=== PATIENT | male | born 1940 | race Caucasian/White ===

== ENCOUNTER 2016-12-05 11:36 | Emergency (ER) | payer OTHER ==
[~2016-12-05] VITALS: Ht 172.7 cm; Wt 86.2 kg
[~2016-12-05 11:36] MED LIST: ASPIRIN325 M2 PO; ASPIRIN81 M4 PO; ATORVASTATIN CA80 M1 PO; HEPARIN-1/25000 UNI1 IV; LISINOPRIL5 M1 PO; METOPROLOL TART25 M1 PO; ONE DAILY MULT1 EAC2 PO; PLAVIX75 M1 PO
[2016-12-05] MEDS ORDERED: LABETALOL HCL100 M1 PO (12:38)
[2016-12-05] MEDS ORDERED: VITAMIN D1000 UNIT PO (12:39)
--- NOTE | 2016-12-05 12:39 | ED AMS/SEIZURE/WEAK/DIZZY ---
History of Present Illness General Chief Complaint: Dizziness Stated Complaint: DIZZINESS Source: patient, family Exam Limitations: no limitations Vital Signs & Intake/Output Vital Signs & Intake/Output Vital Signs Date Time Temp Pulse Resp B/P Pulse O2 O2 Flow FiO2 Ox Delivery Rate 12/05 1404 98.5 58 20 158/80 100 Room Air 12/05 1150 67 166/85 12/05 1150 98.2 60 16 146/84 99 Room Air Room Air ED Intake and Output 12/06 0000 12/05 1200 Intake Total 1120 Output Total Balance 1120 Intake, IV 1000 Intake, Oral 120 Patient 190 lb Weight Allergies Coded Allergies: Penicillins (Severe, RASH 06/06/16) Reconcile Medications Aspirin (Aspirin*) 325 MG TABLET 1 TAB PO DAILY blood thinner Atorvastatin Calcium 80 MG TABLET 80 MG PO 1700 CHOLESTROL Cholecalciferol (Vitamin D3) (Vitamin D) 1,000 UNIT TABLET 1 TAB PO DAILY VIT (Reported) Clopidogrel Bisulfate (Plavix) 75 MG TABLET 75 MG PO DAILY BLOOD THINNER Labetalol HCl 100 MG TABLET 1 TAB PO BID HTN (Reported) Lisinopril 10 MG TABLET 1 TAB PO DAILY HTN (Reported) Meclizine HCl 12.5 MG TABLET 1 TAB PO TID PRN DIZZY Metoprolol Tartrate 25 MG TABLET 25 MG PO BID HEART Multivitamin (One Daily Multivitamin) 1 EACH TABLET 1 TAB PO DAILY SUPPLEMENT Triage Note: TRIAGE: 76 Y/O MALE PRESENTS C/O INCREASED DIZZINESS SINCE THIS MORNING. REPORTS DIZZINESS INCREASES WITH POSITIONAL CHANGES. EKG COMPLETED. NEGATIVE ORTHOSTATUIC BLOOD PRESSURES. Triage Nurses Notes Reviewed? yes HPI: 76-year-old male came through triage room 4 for evaluation of room spinning dizziness that started this morning. He reports all of a sudden he started with a mild sensation of room spinning dizziness noted with head movements and position changes. He denies A lightheaded sensation, near-syncope or syncope. He denies any fever or chills, or recent trauma. He denies chest pain abdominal pain, headaches, blurred vision. (KATHY VAN APRN) Past History Travel History Traveled to [place] past 21 day No Medical History Any Pertinent Medical History? see below for history Neurological: TIA EENT: NONE Cardiovascular: CAD Respiratory: NONE Gastrointestinal: NONE Hepatic: NONE Renal: NONE Musculoskeletal: HERNIATED L5 DISC Psychiatric: NONE Endocrine: NONE Blood Disorders: NONE Cancer(s): NONE ENGINEERING OPERATIONS LEADER/Reproductive: NONE History of MRSA: No History of VRE: No History of CDIFF: No Surgical History Surgical History: CARDIAC CATHETERIZATION Psychosocial History Who do you live with Spouse Services at Home None What is your primary language Lao Tobacco Use: Refused to answer Family History Hx Contributory? No (KATHY VAN APRN) Review of Systems Review of Systems Constitutional: Reports: no symptoms. EENTM: Reports: no symptoms. Respiratory: Reports: no symptoms. Cardiovascular: Reports: no symptoms. GI: Reports: no symptoms. Genitourinary: Reports: no symptoms. Musculoskeletal: Reports: no symptoms. Skin: Reports: no symptoms. Neurological/Psychological: Reports: ataxia. Hematologic/Endocrine: Reports: no symptoms. Immunologic/Allergic: Reports: no symptoms. All Other Systems: Reviewed and Negative (KATHY VAN APRN) Physical Exam Physical Exam General Appearance: well developed/nourished, no apparent distress, alert, awake , comfortable Head: atraumatic, normal appearance Eyes: Bilateral: normal appearance, PERRL, EOMI. Ears, Nose, Throat: normal pharynx, normal ENT inspection Neck: normal inspection, supple, full range of motion Respiratory: normal breath sounds, chest non-tender, no respiratory distress Cardiovascular: regular rate/rhythm Peripheral Pulses: 2+ radial (R), 2+ radial (L) Gastrointestinal: normal bowel sounds, soft, non-tender Back: normal inspection, normal range of motion Extremities: normal range of motion Neurologic/Psych: no motor/sensory deficits, awake, alert, oriented x 3, normal gait, normal mood/affect Skin: intact, normal color, warm/dry Core Measures ACS in differential dx? No CVA/TIA Diagnosis: No Severe Sepsis Present: No Septic Shock Present: No (KATHY VAN APRN) Progress Differential Diagnosis: benign positional vertigo, dehydration, electrolyte imbalance, labrynthitis Plan of Care: Orders Procedure Date/time Status TROPONIN LEVEL 12/05 1242 Complete COMPREHENSIVE METABOLIC PANEL 12/05 1242 Complete CBC WITHOUT DIFFERENTIAL 12/05 1242 Complete EKG 12/05 1142 Active Laboratory Tests 12/05/16 1256: Anion Gap 13, Estimated GFR > 60, BUN/Creatinine Ratio 17.5, Glucose 126 H, Calcium 9.8, Total Bilirubin 0.7, AST 24, ALT 58, Alkaline Phosphatase 78, Troponin I < 0.01, Total Protein 7.1, Albumin 4.5, Globulin 2.6, Albumin/ Globulin Ratio 1.7, CBC w Diff NO MAN DIFF REQ, RBC 5.24, MCV 79.7 L, MCH 26.2 L, RDW 13.1, MPV 6.4 L, Gran % 83.0 H, Lymphocytes % 11.7 L, Monocytes % 4.4, Eosinophils % 0.7, Basophils % 0.2, Absolute Granulocytes 6.7 H, Absolute Lymphocytes 0.9 L, Absolute Monocytes 0.4, Absolute Eosinophils 0.1, Absolute Basophils 0, PUBS MCHC 32.8 L Initial ED EKG: SINUS RHYTHM WITH SLIGHT INTERVENTRICULAR CONDUCTION DELAY. tHIS ecg HAS CHANGED FROM PREVIOUS WHICH SHOWED st DEPRESSIONS IN ALMOST ALL LEADS. Prior EKG: changed Comments: After IV fluids and Antivert patient feels 100% better and dizziness is gone. He can ambulate with no issues. He will take Antivert as instructed and follow- up with Nash Johnson MD on Wednesday. Case discussed with Dr. Aguirre. (KATHY VAN APRN) Departure Departure Time of Disposition: 1419 Disposition: HOME OR SELF CARE Condition: Stable Clinical Impression Primary Impression: Vertigo Referrals: ASIA PAULINO,BETI (PCP/Family) Additional Instructions: Take Antivert 12.5 mg 3 times a day as needed for dizziness. Please follow up with Nash Johnson MD on Wednesday. Return to the emergency department for any worsening or concerning symptoms. Departure Forms: Customer Survey General Discharge Information Prescriptions: Current Visit Scripts Meclizine HCl 1 TAB PO TID PRN DIZZY #20 TAB (KATHY VAN APRN) PA/[employer] Co-Sign Statement Statement: ED Attending supervision documentation- [X] I saw and evaluated the patient. I have also reviewed all the pertinent lab results and diagnostic results. I agree with the findings and the plan of care as documented in the PA's/[employer]'s documentation. [X] I have reviewed the ED Record and agree with the PA's/[employer]'s documentation. [] Additions or exceptions (if any) to the PAs/[employer]'s note and plan are summarized below: [] (FAY PAULINO,RICHAR) ED Attending Observation Initial Observation Note: I have seen and personally examined ALLA NANCE on 12/05/16 at 1451. I agree with the current emergency department documentation. The disposition (admission or discharge) is uncertain at this time, he needs a period of observation for the following reason(s): The ED Nurse caring for this patient has been personally informed as to what the patient is being observed for. (KATHY VAN APRN)
[2016-12-05] MEDS ORDERED: LISINOPRIL10 M1 PO (12:41)
[2016-12-05 13:15] LABS: ABSOLUTE BASOPHIL COUNT 0 /CUMM (0.0-0.2); ABSOLUTE EOSINOPHIL COUNT 0.1 /CUMM (0.0-0.7); ABSOLUTE GRANULOCYTE CT 6.7 /CUMM (1.4-6.5); ABSOLUTE LYMPH COUNT 0.9 /CUMM (1.2-3.4); ABSOLUTE MONOCYTE COUNT 0.4 /CUMM (0.10-0.60); BASOPHIL % 0.2 % (0.0-2.0); EOSINOPHIL % 0.7 % (0-5); HEMATOCRIT 41.7 % (42-52); MEAN CORPUSCULAR HGB 26.2 PG (27.0-31.0); MEAN CORPUSCULAR HGB CONC 32.8 G/DL (33.0-37.0); MEAN CORPUSCULAR VOLUME 79.7 FL (80.0-94.0); MEAN PLATELET VOLUME 6.4 FL (7.4-10.4); PLATELET COUNT 215 /CUMM (130-400); RBC DISTRIBUTION WIDTH 13.1 % (11.5-14.5); RED BLOOD CELL CT 5.24 /CUMM (4.70-6.10)
[2016-12-05 14:04] VITALS: BP 158/80
[2016-12-05] MEDS ORDERED: MECLIZINE HCL12.5 M1 PO (14:21)
== END 2016-12-05 14:47 ==
LOC: ERH 11:36
PROVIDERS: Nurse Practitioner Family
DX: R42 Dizziness and giddiness (principal)
CPT/HCPCS: 93005; 93010; 96360; 96361